=== PATIENT | male | born 2005 | race Caucasian/White ===

== ENCOUNTER 2024-12-22 19:15 | Outpatient (CLI) | payer BC, SELFPAY | END 2024-12-22 19:16 | disposition home or self-care (01) | LOC: AMB 12-23 10:17 | PROVIDERS: Visit Provider Student in an Organized Health Care Education/Training Program | DX: G40.909 Epilepsy, unspecified, not intractable, without status epilepticus (principal) | CPT/HCPCS: A0425; A0427 ==